=== PATIENT | male | born 1980 | race Caucasian/White ===

== ENCOUNTER 2018-02-17 20:15 | Emergency (ER) | payer SELFPAY ==
[2018-02-17 21:25] VITALS: BP 136/97
--- NOTE | 2018-02-17 21:59 | ED ---
Gurinder Rob Angela, scribed for Lula Liu MD on 02/17/18 at 2039 . Substance Abuse/Use - HPI Summary HPI Summary: This pt is a 37 y/o male, accompanied by mother, presenting to [facility] for heroin overdose. Pt reports he got dropped off at his house and snorted heroin. He does not remember what time he began snorting heroin. Mother states she was at work when her other son got home and found the pt unresponsive. Mother called 911. Brother placed the pt in a cold shower. By the time the mother arrived home , the pt was awake and alert. EMS arrived on scene but did not administer Narcan. Mother decided to drive the pt to the ED as the pt does not have insurance. Pt currently reports feeling "fine." He is oriented to place. Pt notes he has only used heroin a couple of times his whole life. He also uses marijuana. Denies taking any medications on a regular basis. - History Of Current Complaint Chief Complaint: EDSubstanceAbuse Stated Complaint: POSSIBLE OVERDOSE Time Seen by Provider: 02/17/18 20:27 Hx Obtained From: Patient, Family/Desktop Engineer - Mother Ingestion History: Type/Name Of Drug - Heroin, Amount Ingested - unknown, Approximate Time Of Ingestion - unknown Overdose Characteristics: Other - snorting Timing Of Abuse: Binge Use Severity Currently: Moderate Aggravating Factor(s): Nothing Alleviating Factor(s): Other - cold shower Associated Signs And Symptoms: Intentional Ingestion - Allergies/Home Medications Allergies/Adverse Reactions: Allergies Allergy/AdvReac Type Severity Reaction Status Date / Time No Known Allergies Allergy Verified 09/10/13 13:29 PMH/Surg Hx/FS Hx/Imm Hx Endocrine/Hematology History: Denies: Hx Diabetes Cardiovascular History: Denies: Hx Hypertension Infectious Disease History: No Infectious Disease History: Denies: Traveled Outside the [place] in Last 30 Days - Family History Known Family History: Positive: Cardiac Disease, Diabetes Family History: [place] - Social History Alcohol Use: Daily Substance Use Type: Reports: Heroin, Marijuana Smoking Status (MU): Never Smoked Tobacco Review of Systems Negative: Fever, Chills Negative: Shortness Of Breath Negative: Vomiting, Nausea All Other Systems Reviewed And Are Negative: Yes Physical Exam - Summary Physical Exam Summary: VITAL SIGNS: Reviewed. GENERAL: Patient is a well-developed and nourished male who is lying comfortable in the stretcher. Patient is not in any acute respiratory distress. HEAD AND FACE: No signs of trauma. No ecchymosis, hematomas or skull depressions. No sinus tenderness. EYES: Pinpoint pupils, EOMI x 2, No nystagmus. EARS: Hearing grossly intact. Ear canals and tympanic membranes are within normal limits. MOUTH: Oropharynx within normal limits. NECK: Supple, trachea is midline, no adenopathy, no JVD, no carotid bruit, no c- spine tenderness, neck with full ROM. CHEST: Symmetric, no tenderness at palpation LUNGS: Clear to auscultation bilaterally. No wheezing or crackles. CVS: Regular rate and rhythm, S1 and S2 present, no murmurs or gallops appreciated. ABDOMEN: Soft, non-tender. No signs of distention. No rebound no guarding, and no masses palpated. Bowel sounds are normal. EXTREMITIES: FROM in all major joints, no edema, no cyanosis or clubbing. NEURO: Pt is awake. Alert and oriented x 3. No acute neurological deficits. Speech is normal and follows commands. SKIN: Dry and warm Triage Information Reviewed: Yes Vital Signs On Initial Exam: Initial Vitals Temp Pulse Resp BP Pulse Ox 97.3 F 78 18 141/93 94 02/17/18 20:18 02/17/18 20:18 02/17/18 20:18 02/17/18 20:18 02/17/18 20:18 Vital Signs Reviewed: Yes Diagnostics - Vital Signs Vital Signs Temp Pulse Resp BP Pulse Ox 02/17/18 20:18 97.3 F 78 18 141/93 94 - Laboratory Lab Statement: Any lab studies that have been ordered have been reviewed, and results considered in the medical decision making process. Course/Dx - Course Assessment/Plan: Pt is a 37 y/o male who presents for heroin overdose. Pt reports he got dropped off at his house and snorted heroin. He does not remember what time he began snorting heroin. Mother states she was at work when her other son got home and found the pt unresponsive. Mother called 911. Brother placed the pt in a cold shower. By the time the mother arrived home, the pt was awake and alert. EMS arrived on scene but did not administer Narcan. Mother decided to drive the pt to the ED as the pt does not have insurance. Pt currently reports feeling "fine." He is oriented to place. Pt notes he has only used heroin a couple of times his whole life. He also uses marijuana. Pt has been stable in the ED. He is alert and oriented x3. His vital signs are stable. Pt will be discharged home with his mother. He is instructed to return to the ED for any worsening symptoms. - Diagnoses Provider Diagnoses: Substance abuse Discharge - Sign-Out/Discharge Documenting (check all that apply): Discharge/Admit/Transfer - Discharge - Discharge Plan Condition: Stable Disposition: HOME Patient Education Materials: Narcotic Abuse (ED) Referrals: [facility] [Outside] Additional Instructions: Please follow up with your primary care provider. RETURN TO EMERGENCY DEPARTMENT FOR ANY NEW OR WORSENING SYMPTOMS. The documentation as recorded by the Gurinder alex Angela accurately reflects the service I personally performed and the decisions made by me, Lula Liu MD.
== END 2018-02-17 21:31 | disposition home or self-care (01) ==
LOC: ED 20:15
DX: T40.1X1A Poisoning by heroin, accidental (unintentional), initial encounter (principal); X58.XXXA Exposure to other specified factors, initial encounter
CPT/HCPCS: 99282

== ENCOUNTER 2018-07-18 11:21 | Emergency (ER) | payer SELFPAY ==
[2018-07-18 11:49] VITALS: BP 128/96
--- NOTE | 2018-07-18 13:05 | UC ---
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 Recently he has had drainage and swelling of the gum. His pain is controlled by ibuprofen. He has not had a fever. - History of Current Complaint Chief Complaint: UCDentalProblem Stated Complaint: DENTAL PAIN Time Seen by Provider: 07/18/18 12:57 Hx Obtained From: Patient Onset/Duration: Gradual Onset, Lasting Weeks, Worse Since - days Severity: Mild Pain Intensity: 2 Pain Scale Used: 0-10 Numeric Aggravating Factor(s): Heat, Cold, Chewing Alleviating Factor(s): OTC Meds Related History: Discharge, Swelling Dental: 1 - absent tooth/rotted to gum line/swollen gums - Allergies/Home Medications Allergies/Adverse Reactions: Allergies Allergy/AdvReac Type Severity Reaction Status Date / Time No Known Allergies Allergy Verified 07/18/18 11:49 PMH/Surg Hx/FS Hx/Imm Hx Previously Healthy: Yes - Surgical History Surgical History: None - Family History Known Family History: Positive: Cardiac Disease, Diabetes, Other Family History: [place] - Social History Alcohol Use: Daily Alcohol Amount: 6-12 beers daily Substance Use Type: Heroin, Marijuana Substance Use Comment - Amount & Last Used: intermittent use, Smoking Status (MU): Never Smoked Tobacco Type: Smokeless Tobacco Household Exposure Type: Cigarettes Review of Systems All Other Systems Reviewed And Are Negative: Yes Constitutional: Positive: Negative Skin: Positive: Negative Eyes: Positive: Negative ENT: Positive: Dental Pain Respiratory: Positive: Negative Cardiovascular: Positive: Negative Gastrointestinal: Positive: Negative Genitourinary: Positive: Negative Motor: Positive: Negative Neurovascular: Positive: Negative Musculoskeletal: Positive: Negative Neurological: Positive: Negative Psychological: Positive: Negative Physical Exam Triage Information Reviewed: Yes Appearance: Well-Appearing, No Pain Distress, Well-Nourished Vital Signs: Initial Vital Signs Temp 98.5 F 07/18/18 11:44 Pulse 79 07/18/18 11:44 Resp 18 07/18/18 11:44 BP 128/96 07/18/18 11:44 Pulse Ox 99 07/18/18 11:44 Vital Signs Reviewed: Yes Eyes: Positive: Conjunctiva Clear ENT: Positive: Hearing grossly normal. Negative: Nasal congestion, Nasal drainage, Trismus, Muffled voice, Hoarse voice Dental Exam: Other - see image Neck: Positive: Supple, Nontender, No Lymphadenopathy Respiratory Exam: Normal Respiratory: Positive: Lungs clear, Normal breath sounds, No respiratory distress Cardiovascular: Positive: RRR, No Murmur Musculoskeletal: Positive: ROM Intact, No Edema Neurological: Positive: Alert Psychological Exam: Normal Dental Complaint Course/Dx - Differential Dx/Diagnosis Provider Diagnosis: Dental abscess, Smokeless tobacco use Discharge - Sign-Out/Discharge Documenting (check all that apply): Patient Departure All imaging exams completed and their final reports reviewed: Yes - Discharge Plan Condition: Stable Disposition: HOME Prescriptions: Penicillin VK 500 MG TAB(NF) [Penicillin VK 500 mg Tab] 500 mg PO QID #28 tab Patient Education Materials: Dental Abscess (ED) Referrals: No Primary Care Phys,NOPCP [Primary Care Provider] - Additional Instructions: recheck in 2 days if not improved you will need to see a dentist to have that tooth definitively addressed continue ibuprofen - Billing Disposition and Condition Condition: STABLE Disposition: Home
== END 2018-07-18 13:05 | disposition home or self-care (01) ==
LOC: UCEAST 11:21
DX: K04.7 Periapical abscess without sinus (principal); F17.290 Nicotine dependence, other tobacco product, uncomplicated
CPT/HCPCS: 99212; G0463

== ENCOUNTER 2019-06-13 07:21 | Emergency (ER) | payer SELFPAY ==
--- NOTE | 2019-06-13 07:36 | UC ---
General HPI - HPI Summary HPI Summary: 39 yo gentleman c/o cough x 1 month. Thinks better but gf wanted him to get checked. Does smoke marijuana daily. Does not have inhaler. Did use inhalers as a teenager. Not currently sob. Some productive cough. No hemoptysis. No recent f/c. No rash. No [facility] + congestion. - History of Current Complaint Stated Complaint: COUGH Time Seen by Provider: 06/13/19 07:35 Hx Obtained From: Patient - Allergy/Home Medications Allergies/Adverse Reactions: Allergies Allergy/AdvReac Type Severity Reaction Status Date / Time No Known Allergies Allergy Verified 06/13/19 07:30 PMH/Surg Hx/FS Hx/Imm Hx Previously Healthy: Yes - Surgical History Surgical History: None - Family History Known Family History: Positive: Cardiac Disease, Diabetes, Other Family History: [place] - Social History Alcohol Use: Daily Alcohol Amount: 6-12 beers daily Substance Use Type: Heroin, Marijuana Substance Use Comment - Amount & Last Used: intermittent use, Smoking Status (MU): Never Smoked Tobacco Type: Smokeless Tobacco Household Exposure Type: Cigarettes Review of Systems All Other Systems Reviewed And Are Negative: Yes Constitutional: Positive: Other - see hpi Skin: Positive: Negative Eyes: Positive: Other - see hpi ENT: Positive: Other Respiratory: Positive: Cough Cardiovascular: Positive: Negative Gastrointestinal: Positive: Negative Genitourinary: Positive: Negative Motor: Positive: Negative Neurovascular: Positive: Negative Musculoskeletal: Positive: Negative Neurological: Positive: Negative Psychological: Positive: Negative Is Patient Immunocompromised?: No Physical Exam Triage Information Reviewed: Yes Appearance: Well-Appearing - sitting up, conversing easily, Thin Vital Signs Reviewed: Yes Eye Exam: Normal - grossly nad ENT Exam: Normal ENT: Positive: Normal ENT inspection, Pharynx normal Neck exam: Normal Neck: Positive: Supple Respiratory Exam: Other - + occas cough, occas exp wheeze bs equal. no rtx Respiratory: Positive: No respiratory distress, No accessory muscle use Cardiovascular Exam: Normal Cardiovascular: Positive: RRR, Pulses Normal, Brisk Capillary Refill Abdominal Exam: Normal Abdomen Description: Positive: Nontender Musculoskeletal Exam: Normal Neurological Exam: Normal - grossly nad Psychological Exam: Normal - conversing easily and appropriately Skin Exam: Normal - nondiaphoretic no visible or reported rash Course/Dx - Course Course Of Treatment: bp 130/90 [facility] information given to pt at d/c. Questions answered as posed to the best of my ability. - Diagnoses Provider Diagnosis: Bronchitis Discharge ED - Discharge Plan Condition: Stable Disposition: HOME Prescriptions: Albuterol HFA INHALER* [Ventolin HFA Inhaler*] 1 - 2 puff INH Q4H PRN #1 mdi PRN Reason: Wheezing Azithromyxin GERARDO (NF) [Z-Gerardo (Zithromax) 250 mg tabs #6] 2 tab PO .TODAY, THEN 1 DAILY #6 tab Benzonatate CAP* [Tessalon 100 MG CAP*] 100 mg PO TID PRN #30 cap PRN Reason: Cough Patient Education Materials: Chronic Bronchitis (ED) Referrals: No Primary Care Phys,NOPCP [Primary Care Provider] - Additional Instructions: Please follow up with a primary care physician as soon as possible. Blood pressure recheck recommend within 4 weeks. If your symptoms do not improve or resolve, it is very important that you get rechecked. Seek medical attention for worse or new problems as well. Hydrate. Please try not to smoke. - Billing Disposition and Condition Condition: STABLE Disposition: Home
[2019-06-13 07:42] VITALS: BP 130/90
== END 2019-06-13 08:15 | disposition home or self-care (01) ==
LOC: UCEAST 07:21
DX: J40 Bronchitis, not specified as acute or chronic (principal)
CPT/HCPCS: 99212; G0463